=== PATIENT | male | born 1965 | race Two or more races ===

== ENCOUNTER 2023-07-30 07:13 | Emergency (ER) | payer OTHER ==
[~2023-07-30] VITALS: Ht 190.5 cm; Wt 81.6 kg
== END 2023-07-30 10:24 | disposition home or self-care (01) ==
LOC: ER 07:15
DX: S20.212A Contusion of left front wall of thorax, initial encounter (principal); V00.831A Fall from motorized mobility scooter, initial encounter; Y93.I9 Activity, other involving external motion; Y92.413 State road as the place of occurrence of the external cause
CPT/HCPCS: 71110; 96372; 99284; J1885